=== PATIENT | male | born 1990 | race African-American/Black ===

== ENCOUNTER 2018-04-26 13:21 | Emergency (ER) | payer MEDICAID ==
[~2018-04-26] VITALS: Ht 167.6 cm; Wt 74.0 kg
[2018-04-26] MEDS ORDERED: ZIPRASIDONE HCL 20MG CAPSULE PO STA (14:56)
[2018-04-26 15:00] VITALS: BP 148/95
[2018-04-26] MEDS ORDERED: LORAZEPAM 1MG TABLET PO ONE (15:00)
[2018-04-26 15:03] LABS: CLARITY URINE CLEAR (CLEAR); COLOR URINE YELLOW (YELLOW); KETONES URINE TRACE (NEGATIVE); LEUKOCYTE ESTERASE URINE NEGATIVE (NEGATIVE); NITRITE URINE NEGATIVE (NEGATIVE); OCCULT BLOOD URINE NEGATIVE (NEGATIVE); PROTEIN URINE NEGATIVE (NEGATIVE); SPECIFIC GRAVITY URINE 1.002 (1.005-1.030)
[2018-04-26 15:15] LABS: *AMPHETAMINES SCREEN URINE PRESUMTIVE POSITIVE (NEGATIVE); *BARBITURATES SCREEN URINE NEGATIVE (NEGATIVE); CANNABINOID URINE SCREEN NEGATIVE (NEGATIVE); METHADONE URINE SCREEN NEGATIVE (NEGATIVE); OPIATES URINE SCREEN NEGATIVE (NEGATIVE); PHENCYCLIDINE URINE SCREEN NEGATIVE (NEGATIVE)
[2018-04-26 15:17] LABS: *BENZODIAZEPINES SCREEN URINE NEGATIVE (NEGATIVE); *COCAINE SCREEN URINE NEGATIVE (NEGATIVE)
== END 2018-04-26 17:17 | disposition left against medical advice (07) ==
LOC: ER 13:21
DX: T43.621A Poisoning by amphetamines, accidental (unintentional), initial encounter (principal); R41.82 Altered mental status, unspecified; G93.40 Encephalopathy, unspecified; E86.0 Dehydration; Y92.89 Other specified places as the place of occurrence of the external cause; F29 Unspecified psychosis not due to a substance or known physiological condition
CPT/HCPCS: 80305; 93005; 99284

== ENCOUNTER 2018-09-17 22:49 | Emergency (ER) | payer MEDICAID ==
[~2018-09-17] VITALS: Ht 177.8 cm; Wt 84.0 kg
[2018-09-17] MEDS ORDERED: AMMONIA INHALATION 1EA INH ONE (23:30)
[2018-09-17 23:46] LABS: CLARITY URINE CLEAR (CLEAR); COLOR URINE DARK YELLOW (YELLOW); KETONES URINE TRACE (NEGATIVE); LEUKOCYTE ESTERASE URINE NEGATIVE (NEGATIVE); NITRITE URINE NEGATIVE (NEGATIVE); OCCULT BLOOD URINE 2+ (NEGATIVE); PH URINE 5.5 (4.5-8.0); PROTEIN URINE TRACE (NEGATIVE); SPECIFIC GRAVITY URINE 1.028 (1.005-1.030)
[2018-09-18 00:02] LABS: *AMPHETAMINES SCREEN URINE PRESUMTIVE POSITIVE (NEGATIVE); *BARBITURATES SCREEN URINE NEGATIVE (NEGATIVE); *BENZODIAZEPINES SCREEN URINE NEGATIVE (NEGATIVE); *COCAINE SCREEN URINE NEGATIVE (NEGATIVE); METHADONE URINE SCREEN NEGATIVE (NEGATIVE); OPIATES URINE SCREEN NEGATIVE (NEGATIVE); PHENCYCLIDINE URINE SCREEN NEGATIVE (NEGATIVE)
[2018-09-18 00:03] LABS: CANNABINOID URINE SCREEN NEGATIVE (NEGATIVE)
[2018-09-18 00:35] LABS: BASOPHILS % 0.8 % (0.0-2.0); EOSINOPHILS % 2.4 % (0.0-5.0); HEMATOCRIT. 46.5 % (42.0-52.0); HEMOGLOBIN. 15.9 g/dL (14.0-18.0); LYMPHOCYTES % 23.2 % (20.0-50.0); MEAN CORPUSCULAR HEMOGLOBIN 33.5 pg (28.0-32.0); MEAN CORPUSCULAR VOLUME 98.1 fL (80.0-94.0); MEAN PLATELET VOLUME 7.6 fl (7.4-10.4); MONOCYTES % 7.8 % (2.0-8.0); NEUTROPHILS % 65.8 % (40.0-76.0); PLATELET 297 x1000/uL (130-400); RED BLOOD CELL COUNT 4.75 mill/uL (4.7-6.1); RED CELL DISTRIBUTION WIDTH 13.2 % (11.6-14.6)
[2018-09-18 00:43] LABS: CHLORIDE 104 mEq/L (98-107)
[2018-09-18 00:45] LABS: ETHANOL BLOOD 38 mg/dL
[2018-09-18] MEDS ORDERED: AMMONIA INHALATION 1EA INH ONE (01:30)
[2018-09-18 02:27] VITALS: BP 121/84
== END 2018-09-18 02:27 | disposition home or self-care (01) ==
LOC: ER 22:49
DX: F15.129 Other stimulant abuse with intoxication, unspecified (principal); R41.82 Altered mental status, unspecified; F16.10 Hallucinogen abuse, uncomplicated
CPT/HCPCS: 36415; 70450; 80053; 80305; 80307; 80320; 80329; 81003; 82962; 84484; 85025; 93005; 99284; Z7610; G0480

== ENCOUNTER 2018-09-18 04:10 | Emergency (ER) | payer OTHER, MEDICAID ==
[~2018-09-18] VITALS: Ht 180.3 cm; Wt 65.0 kg
[2018-09-18] MEDS ORDERED: IBUPROFEN 600MG TABLET PO ONE (05:15)
[2018-09-18 05:26] VITALS: BP 142/84
== END 2018-09-18 05:28 | disposition home or self-care (01) ==
LOC: ER 04:10
DX: N36.8 Other specified disorders of urethra (principal)
CPT/HCPCS: 99283

== ENCOUNTER 2020-12-20 06:13 | Emergency (ER) | payer MEDICAID, OTHER ==
[~2020-12-20] VITALS: Ht 165.1 cm; Wt 100.0 kg
[2020-12-20] MEDS ORDERED: KETOROLAC 30MG/ML VIAL IV STA (06:42)
[2020-12-20] MEDS ORDERED: ONDANSETRON HCL 4MG/2ML INJ IV ONE (07:00)
[2020-12-20 07:14] LABS: BASOPHILS % 0.6 % (0.0-2.0); EOSINOPHILS % 2.3 % (0.0-5.0); HEMATOCRIT. 46.4 % (42.0-52.0); HEMOGLOBIN. 15.5 g/dL (14.0-18.0); LYMPHOCYTES % 32.4 % (20.0-50.0); MEAN CORPUSCULAR HEMOGLOBIN 30.8 pg (28.0-32.0); MEAN CORPUSCULAR VOLUME 92.3 fL (80.0-94.0); MEAN PLATELET VOLUME 8.5 fl (7.4-10.4); NEUTROPHILS % 50.7 % (40.0-76.0); PLATELET 267 x1000/uL (130-400); RED BLOOD CELL COUNT 5.02 mill/uL (4.7-6.1); RED CELL DISTRIBUTION WIDTH 13.3 % (11.6-14.6)
[2020-12-20 07:26] LABS: CHLORIDE 105 mEq/L (98-107)
[2020-12-20] MEDS ORDERED: TOPUD PO (08:33)
[2020-12-20 08:40] VITALS: BP 133/63
== END 2020-12-20 08:58 | disposition home or self-care (01) ==
LOC: ER 06:13
DX: T43.641A Poisoning by ecstasy, accidental (unintentional), initial encounter (principal); T51.0X1A Toxic effect of ethanol, accidental (unintentional), initial encounter; R07.2 Precordial pain; R11.2 Nausea with vomiting, unspecified; F16.10 Hallucinogen abuse, uncomplicated; F10.10 Alcohol abuse, uncomplicated; Y90.9 Presence of alcohol in blood, level not specified; Y92.89 Other specified places as the place of occurrence of the external cause
CPT/HCPCS: 36415; 71045; 80053; 83880; 84484; 85025; 93005; 96374; 96375; 99285; J1885; J2405

== ENCOUNTER 2024-12-29 08:32 | Emergency (ER) | payer MEDICAID ==
[~2024-12-29] VITALS: Ht 172.7 cm; Wt 75.0 kg
[~2024-12-29 08:32] MED LIST: TOPUD PO
[2024-12-29 08:34] VITALS: BP 133/89; TEMP 36.9; O2SAT 99
[2024-12-29 08:35] VITALS: PULSE 82; RESP 14; O2SAT 99
[2024-12-29] MEDS: LIDOCAINE HCL 1% 20ML VIAL INFIL ONE (09:15)
== END 2024-12-29 10:15 | disposition home or self-care (01) ==
LOC: ER 08:38
DX: S01.81XA Laceration without foreign body of other part of head, initial encounter (principal); Y09 Assault by unspecified means; Y93.89 Activity, other specified; Y92.89 Other specified places as the place of occurrence of the external cause; Y99.8 Other external cause status
CPT/HCPCS: 12011; 99282; J2003; Z7610 ×3

== ENCOUNTER 2025-01-04 15:34 | Emergency (ER) | payer MEDICAID ==
[~2025-01-04] VITALS: Ht 165.1 cm; Wt 77.0 kg
[2025-01-04 15:36] VITALS: BP 171/100; PULSE 98; RESP 16; TEMP 36.7; O2SAT 98; O2SAT 99
== END 2025-01-04 17:55 | disposition left against medical advice (07) ==
LOC: ER 15:34
DX: S01.91XD Laceration without foreign body of unspecified part of head, subsequent encounter (principal); X58.XXXD Exposure to other specified factors, subsequent encounter
CPT/HCPCS: 99281

== ENCOUNTER 2025-01-05 08:32 | Emergency (ER) | payer MEDICAID, OTHER ==
[~2025-01-05] VITALS: Ht 165.1 cm; Wt 77.0 kg
[2025-01-05 08:39] VITALS: O2SAT 98
[2025-01-05 09:36] VITALS: BP 140/84; PULSE 71; RESP 18; TEMP 36.8; O2SAT 100
== END 2025-01-05 09:48 | disposition home or self-care (01) ==
LOC: ER 08:32
DX: S01.111D Laceration without foreign body of right eyelid and periocular area, subsequent encounter (principal); X58.XXXD Exposure to other specified factors, subsequent encounter
CPT/HCPCS: 99282

== ENCOUNTER 2025-02-18 00:19 | Emergency (ER) | payer OTHER ==
[~2025-02-18] VITALS: Ht 167.6 cm; Wt 72.0 kg
[2025-02-18 00:22] VITALS: O2SAT 100
[2025-02-18] MEDS: ONDANSETRON 4MG ODT PO ONE (01:00)
[2025-02-18] MEDS: FAMOTIDINE 20MG TABLET PO ONE (01:00)
[2025-02-18] MEDS: MAGNESIUM/ALUMINUM HYDROXIDE/SIMETHICONE 30ML UDC PO ONE (01:00)
[2025-02-18 01:22] LABS: PLATELET 237 x1000/uL (130-400); RED BLOOD CELL COUNT 4.50 mill/uL (4.7-6.1); RED CELL DISTRIBUTION WIDTH 12.4 % (11.6-14.6)
[2025-02-18] MEDS: KETOROLAC 30MG/ML VIAL IM ONE (01:30)
[2025-02-18 02:03] LABS: CREATININE 0.8 mg/dL (0.6-1.3)
[2025-02-18 02:04] LABS: ETHANOL BLOOD 214 mg/dL (<10); PROTEIN TOTAL 7.2 g/dL (6.0-8.3); UREA NITROGEN BLOOD < 5 mg/dL (9-23)
[2025-02-18 02:05] LABS: ASPARTATE AMINOTRANSFERASE 39 IU/L (<34); BILIRUBIN DIRECT 0.2 mg/dL (<=3.0)
[2025-02-18 02:06] LABS: BILIRUBIN TOTAL 0.5 mg/dL (0.1-1.0)
[2025-02-18 02:19] VITALS: BP 114/81; PULSE 79; RESP 17; O2SAT 100
== END 2025-02-18 02:20 ==
LOC: ER 00:35
DX: R11.2 Nausea with vomiting, unspecified (principal); M25.531 Pain in right wrist; M25.532 Pain in left wrist; R45.1 Restlessness and agitation
CPT/HCPCS: 36415; 80048; 80076; 80320; 85027; 99283; G0480

== ENCOUNTER 2025-02-18 06:33 | Emergency (ER) | payer OTHER ==
[~2025-02-18] VITALS: Ht 172.7 cm; Wt 81.0 kg
[2025-02-18 06:35] VITALS: O2SAT 99
[2025-02-18 07:25] LABS: BASOPHILS % 0.5 % (0.0-2.0); EOSINOPHILS % 6.2 % (0.0-5.0); HEMATOCRIT. 45.4 % (42.0-52.0); HEMOGLOBIN. 15.1 g/dL (14.0-18.0); LYMPHOCYTES % 17.9 % (20.0-50.0); MEAN PLATELET VOLUME 8.0 fl (7.4-10.4); MONOCYTES % 9.5 % (2.0-8.0); NEUTROPHILS % 65.9 % (40.0-76.0); PLATELET 212 x1000/uL (130-400); RED BLOOD CELL COUNT 4.58 mill/uL (4.7-6.1); RED CELL DISTRIBUTION WIDTH 12.6 % (11.6-14.6)
[2025-02-18 07:37] LABS: CREATININE 0.7 mg/dL (0.6-1.3); UREA NITROGEN BLOOD < 5 mg/dL (9-23)
[2025-02-18 07:39] LABS: TROPONIN I HIGH SENSITIVITY 5 ng/L (3.0-53)
[2025-02-18 08:52] VITALS: BP 135/90; PULSE 90; RESP 17; TEMP 36.7; O2SAT 100
== END 2025-02-18 09:20 | disposition home or self-care (01) ==
LOC: ER 06:43
DX: R53.1 Weakness (principal); R42 Dizziness and giddiness; G40.509 Epileptic seizures related to external causes, not intractable, without status epilepticus
CPT/HCPCS: 36415; 80048; 84484; 85025; 99283